=== PATIENT | female | born 1955 | race Caucasian/White ===

== ENCOUNTER 2019-11-06 11:40 | Emergency (ER) | payer OTHER, SELFPAY ==
[2019-11-06 11:48] VITALS: BP 149/80; PULSE 111; RESP 16; TEMP 37.4; O2SAT 98
--- NOTE | 2019-11-06 11:55 | ED.URI ---
HPI - URI/Sore Throat General Chief Complaint: Upper Respiratory Infection Stated Complaint: EARACHE/HEADACHE/SNEEZING/COUGH Time Seen by Provider: 11/06/19 12:10 Source: patient and RN notes reviewed Mode of arrival: ambulatory Limitations: no limitations History of Present Illness HPI Narrative: 64-year-old female presents with concern for a day history of sinus congestion, sinus pressure, facial pain, postnasal drainage, sneezing, rhinorrhea, cough, body aches. Reports taking several nytl-naa-ssezege medications with little relief. MD elicited complaint: cough Related Data Home Medications Medication Instructions Recorded Confirmed ranitidine HCl [Zantac 75] 11/06/19 Allergies Allergy/AdvReac Type Severity Reaction Status Date / Time ampicillin Allergy Unknown Unknown Verified 08/06/18 09:20 erythromycin base Allergy Unknown Unknown Verified 08/06/18 09:20 Penicillins Allergy Unknown Verified 02/01/18 14:19 tetracycline Allergy Unknown Unknown Verified 08/06/18 09:20 Review of Systems Review of Systems: Narrative: CONSTITUTIONAL: Reports malaise, chills. Denies sweats, or fever. EYES: Denies visual changes, redness, or discharge. ENT: Reports rhinorrhea, congestion, sinus pain, otalgia and sore throat. CARDIOVASCULAR: Denies chest pain, palpitations, or edema. RESPIRATORY: Reports cough, chest congestion. Denies dyspnea. GASTROINTESTINAL: Denies abdominal pain, nausea, vomiting, diarrhea SKIN: Denies rash or itching. MUSCULOSKELETAL: Reports myalgia. NEUROLOGIC: Reports headache. All systems reviewed & are unremarkable except as noted in HPI and below PMFSH Family History Family History (Updated 08/06/18 @ 09:24 by DOCTOR UNKNOWN) Father Diabetes mellitus Family history of coronary artery disease Other Family history of premature coronary heart disease Social History Social History Smoking status: Never smoker Alcohol intake: current Comments At time of signature, agree with nursing past medical, surgical, social and family history. There is no relevant family history pertinent to the presenting complaint Exam Narrative: Exam Narrative: GENERAL: Well-appearing, well-nourished, and in no acute distress. HEAD: Normocephalic EYES: PERRLA, conjunctivae clear ENT: Nares clear, turbinates edematous and erythematous, purulent discharge. Mucous membranes moist. TM pearly andrews with dull light reflex bilaterally; no tragal tenderness. Oropharynx erythematous without lesions. Tonsils not enlarged and without exudate, no drooling, no hoarseness, no trismus. NECK: Supple. No lymphadenopathy CHEST: Clear to auscultation, breath sounds equal. No wheezing, rhonchi, rales, or stridor. No respiratory distress, speaks in full sentences. Cough noted HEART: Regular rate and rhythm. No murmur heard. Normal peripheral pulses. SKIN: Warm, dry, no rash. NEURO: Alert and oriented x3. PSYCH: Normal mood and affect Course Course Emergency Course: Patient is aware of diagnosis, understands and agrees to treatment plan. Anticipatory guidance given. Patient agrees to follow-up as directed and is aware of reasons to seek care at the emergency department. Portions of this record may have been created with voice recognition software Vital Signs Vital signs: Vital Signs Temperature 99.4 F 11/06/19 11:48 Pulse Rate 111 H 11/06/19 11:48 Respiratory Rate 16 11/06/19 11:48 Blood Pressure 149/80 H 11/06/19 11:48 Pulse Oximetry 98 11/06/19 11:48 Temperature 99.4 F 11/06/19 11:48 Pulse Rate 111 H 11/06/19 11:48 Respiratory Rate 16 11/06/19 11:48 Blood Pressure 149/80 H 11/06/19 11:48 Pulse Oximetry 98 11/06/19 11:48 Reviewed. MDM - URI/Sore Throat MDM Narrative Medical decision making narrative: Differential diagnosis considered: Strep pharyngitis, allergic rhinitis, upper respiratory tract infection, sinusitis, rhinosinusitis, nasopharyngitis. viral pharyngitis, otitis media, otitis e
== END 2019-11-06 12:23 | disposition home or self-care (01) ==
PROVIDERS: Emergency Provider Nurse Practitioner
DX: J32.9 Chronic sinusitis, unspecified (principal); J40 Bronchitis, not specified as acute or chronic
CPT/HCPCS: 99213; G0463

== ENCOUNTER 2020-07-18 07:50 | Outpatient (CLI) | payer OTHER, SELFPAY ==
--- NOTE | ~2020-07-18 | MM_ITS ---
EXAMINATION: MM screening ari BI w melodie HISTORY: Screening TECHNIQUE: Craniocaudal and mediolateral oblique 3-D tomosynthesis images were obtained and synthetic 2-D images were generated. CAD analysis was submitted and interpreted. COMPARISON: Comparison to multiple prior studies sequentially, with oldest reviewed study dated 05/2015. BREAST PARENCHYMAL COMPOSITION: There are scattered areas of fibroglandular density. FINDINGS: There are developing asymmetries in the pain upper outer quadrant of the right breast. Ther e are developing calcifications in the left breast. IMPRESSION: 1. Developing right breast asymmetries and left breast calcifications. 2. Additional mammographic views and possible breast ultrasound are recommended. BI-RADS Category 0: Incomplete: Needs additional imaging evaluation. Reviewed, dictated and finalized at location A. ES 1 THRU 6 VISITING TEACHER IMPRESSION: 1. Developing right breast asymmetries and left breast calcifications. 2. Additional mammographic views and possible breast ultrasound are recommended . BI-RADS Category 0: Incomplete: Needs additional imaging evaluation.
== END 2020-07-18 07:51 | disposition home or self-care (01) ==
PROVIDERS: Visit Provider Nurse Practitioner
DX: Z12.31 Encounter for screening mammogram for malignant neoplasm of breast (principal); R92.8 Other abnormal and inconclusive findings on diagnostic imaging of breast
CPT/HCPCS: 77063; 77067

== ENCOUNTER 2020-07-18 08:26 | Outpatient (CLI) | payer OTHER, SELFPAY ==
[2020-07-18 10:34] LABS: Vitamin D 25 Hydroxy 56.1 ng/mL
[2020-07-18 11:04] LABS: Hepatitis C Virus Antibody Negative (Negative)
== END 2020-07-18 08:27 | disposition home or self-care (01) ==
PROVIDERS: Visit Provider Nurse Practitioner
DX: Z11.59 Encounter for screening for other viral diseases (principal); E55.9 Vitamin D deficiency, unspecified
CPT/HCPCS: 36415; 82306; 86803

== ENCOUNTER 2020-08-10 13:55 | Outpatient (CLI) | payer OTHER, SELFPAY ==
--- NOTE | ~2020-08-10 | MMUS_ITS ---
EXAMINATION: MM diagnostic ari BI w melodie, US breast BI complete HISTORY: Developing right breast asymmetries and left breast calcifications TECHNIQUE: Additional 3-D tomosynthesis images of both breasts were performed and synthetic 2-D image s were generated. Magnification views of left breast. CAD analysis was submitted and interpreted. Hig h resolution bilateral complete breast ultrasound was performed. COMPARISON: 07/18/2020 bilateral digital screening mammogram BREAST PARENCHYMAL COMPOSITION: The breasts are heterogeneously dense, which may obscure small masses . FINDINGS: MAMMOGRAPHIC FINDINGS: Approximately 1.5 cm circumscribed mass is noted in the outer mid right breast. There is an approximate 4 mm and 3 mm circumscribed opacities situated posteriorly in the central rig ht breast Sonographic correlation is recommended. There is an approximately 1.3 cm length of indeterminate pleomorphic microcalcifications, measuring u p to approximately 1.6 mm maximal width, in the upper inner quadrant of the left breast. Sonographic correlation is recommended. There is a circumscribed 4 mm opacity in the lower outer left breast. Additional masses of either breast be obscured by the heterogeneous dense stroma. There are multiple scattered benign calcifications otherwise in each breast. ULTRASOUND: There are multiple bilateral breast cysts, the largest on the right measuring 14.5 x 8 x 19 mm at 10: 00 3 cm from the nipple. There is a circumscribed hypoechoic lesion with through transmission and no internal vascularity at 1 0:00 3 cm from the nipple as well, most likely benign. The largest cyst on the left situated at 3:00 and measures 11 x 7 x 8.4 mm, with through transmission posterior enhancement, no internal vascularity, with through transmission, compatible with simple cy st. No suspicious solid lesion or suspicious shadowing of either breast is evident. IMPRESSION: 1. Suspicious linear array of microcalcifications approximately 13 x 1.6 mm dimension in the upper in ner quadrant of the left breast; consider stereotactic biopsy 2. Multiple bilateral masses with benign mammographic and sonographic features, mostly simple cysts Recommendation: Stereotactic biopsy of left upper inner quadrant microcalcifications Reviewed, dictated and finalized at location A. GER PORTABLE IMPRESSION: 1. Suspicious linear array of microcalcifications approximately 13 x 1.6 mm dim ension in the upper inner quadrant of the left breast; consider stereotactic bi opsy 2. Multiple bilateral masses with benign mammographic and sonographic features, mostly simple cysts Recommendation: Stereotactic biopsy of left upper inner quadrant microcalcifica tions
== END 2020-08-10 13:56 | disposition home or self-care (01) ==
PROVIDERS: Visit Provider Obstetrics & Gynecology Gynecology
DX: R92.8 Other abnormal and inconclusive findings on diagnostic imaging of breast (principal)
CPT/HCPCS: 76641; 77062; 77066; G0279

== ENCOUNTER 2020-08-22 10:48 | Outpatient (CLI) | payer OTHER, SELFPAY ==
--- NOTE | ~2020-08-22 | DEXA_ITS ---
Bone Density Report Name: Luna Freeman Age: 64 Sex: Female Ethnicity: White Date of : 1955 Indication: postmenopausal; prior fracture; Referring Provider: Carin, Genia Study: Bone densitometry was performed. Exam Date: August 22, 2020 Accession number: [id number] Bone Density: Region BMD T-score Z-score Classification AP Spine (L1-L4) 0.984 -0.6 1.0 Normal Femoral Neck (Left) 0.845 0.0 1.4 Normal Total Hip (Left) 1.079 1.1 2.2 Normal Total Hip Bilateral Avg 1.036 0.8 1.9 Normal Femoral Neck (Right) 0.816 -0.3 1.1 Normal Total Hip (Right) 0.993 0.4 1.5 Normal World Health Organization criteria for BMD impression classify patients as: Normal (T-score at or above -1.0), Osteopenia (T-score between -1.0 and -2.5), or Osteoporosis (T-score at or below -2.5). 10-year Fracture Risk: FRAX not reported because: All T-scores for Spine Total, Hip Total, Femoral Neck at or above -1.0 Previous Exams: Region Exam Age BMD T-score BMD Change BMD Change Date g/cm2 vs Baseline vs Previous Total Hip(Left) 08/22/2020 64 1.079 1.1 0.076(7.5%)* 0.076(7.5%)* 06/17/2017 61 1.003 0.5 Total Hip(Right) 08/22/2020 64 0.993 0.4 0.032(3.4%)* 0.032(3.4%)* 06/17/2017 61 0.961 0.2 *Denotes significance at 95% confidence level, LSC for Total Hip = 0.027 g/cm2 Clinical Information Provided by Patient: Has had a low trauma fracture Has used the following medications: Vitamin D, Calcium Patient maximum height was 64 Menopause Age: 52 No regular weight bearing exercise Drinks caffeinated beverages Onset of menses at age 12 Number of children 1 Impression: The patient has normal bone mass. The patient has risk factors, including: previous fracture. No significant bone loss was observed. Discussion: BONE DENSITY IS ABOVE THE MINIMUM DESIRABLE LEVEL AT ALL SKELETAL SITES TESTED. This patient?s bone mineral density is above the minimum desirable level (T-score -1.0 or better) at all sites measured. The patient should follow a healthful lifestyle (good nutrition with adequate calcium and vitamin D, and appropriate weight-bearing exercise). Follow-Up: Consider repeating this study in 5 years or sooner if there is some new clinical indication. Reported by: TONI on 08/22/2020 11:21:00 AM. Reviewed, dictated and finalized at location [facility]
== END 2020-08-22 10:49 | disposition home or self-care (01) ==
PROVIDERS: Visit Provider Nurse Practitioner
DX: Z13.820 Encounter for screening for osteoporosis (principal); Z78.0 Asymptomatic menopausal state
CPT/HCPCS: 77080

== ENCOUNTER → 2021-09-24 15:23 | Outpatient (CLI) | payer OTHER, SELFPAY ==
--- NOTE | ~2021-09-24 | US_ITS ---
EXAMINATION: US pelvic complete w TV EXAM DATE: 09/24/2021 16:01 INDICATION: Pelvic pain. TECHNIQUE: Pelvic transabdominal and transvaginal sonogram was performed. There are multiple graysca le and Doppler images available for interpretation. There is no prior study for comparison. FINDINGS: Uterus measures 8.4 x 4.9 x 5.1 cm, with region of loculated endometrial fluid which inclu ding the endometrial stripe measures 1.6 cm, which is considered abnormally thickened for postmenopau felisha status. 2 focal regions along the myometrium were measured, possible fibroids measuring about 1.5 cm each. There is no free pelvic fluid. Right adnexa: The ovary is not identified. There is no adnexal mass. Left adnexa: The ovary is not identified. There is no adnexal mass. IMPRESSION: 1. Fluid in the endometrium with thickened measurement of 1.6 cm. Differential diagnosis includes h yperplasia and carcinoma. 2. Possible small fibroids. Reviewed, dictated and finalized at location G. SCAPE ARCHITECTURE TEACHER IMPRESSION: 1. Fluid in the endometrium with thickened measurement of 1.6 cm. Differentia l diagnosis includes hyperplasia and carcinoma. 2. Possible small fibroids.
== END ==
PROVIDERS: Visit Provider Nurse Practitioner
DX: R10.2 Pelvic and perineal pain (principal)
CPT/HCPCS: 76830; 76856

== ENCOUNTER 2021-10-25 00:30 | Day surgery (SDC) | payer OTHER, SELFPAY ==
[2021-10-18 10:36] VITALS: BMI 37.8
--- NOTE | 2021-10-18 10:47 | PC.NURSE ---
Report to the Outpatient Waiting Room, entrance under the green pavilion located off [facility], at time 0815 on date 10/25/21. OR Time: 1015. - You will be asked a series of questions to screen for COVID 19 for your protection. - A mask is required within the hospital. - No visitors are allowed at this time. Preoperative COVID Testing Requirements: No COVID Test needed if: (proof is required; if not received patient will have Rapid Test prior to entry) - Patient has received COVID Vaccine at least 14 days prior to procedure date or - Patient has positive COVID test result within last 90 days of surgery date. COVID Test needed if above criteria is not met Patients may have clear liquids (water, carbonated beverages, clear teas, apple juice) until 3 hours prior to surgery with a maximum of 20 ounces. - No food from midnight until time of surgery Take the following medications with a SIP of water the morning of surgery: NONE Medications to discontinue per physician: VITAMINS/SUPPLEMENTS Date to take last dose: 10/21/21 Please no make-up, nail pakistani, hairspray, perfume, deodorant, or body powder the day of surgery. No jewelry (including any body piercings) or valuables the day of surgery, leave them at home. Please take a shower or bath the night before, or the morning of, surgery with an antibacterial soap. Wear comfortable, loose fitting clothing. - Jewelry must be removed prior to entering the operating room. Rings and piercings that are not removed may be cut off. - The hospital will not accept responsibility for valuables. - Please leave all valuables, including medications, at home the day of surgery. If you are going home after surgery, a licensed roll off driver must drive you home. - NO public transportation without another adult. - We recommend that an adult stay with you for 24 hours following discharge. - We also recommend that you do not drive, make important decision, drink alcoholic beverages, or take any drugs that were not prescribed by your health care provider for at least 24 hours after your discharge time. Follow any additional instructions given to you from your surgeon. Telephone instructions given to FROILAN FRIAS and asked if any additional questions and then verbalized understanding. Patient advised to call surgeon office or pre surgery nurse liaison [phone] if any additional questions.
--- NOTE | 2021-10-25 07:38 | WPDHPUPDATE1 ---
History and Physical Update Update Date/Time: 10/25/21 07:38 History and Physical has been reviewed, including an updated exam of the patient. There are NO changes in the patient's condition. Risks, benefits, and alternatives have been discussed and questions answered. Patient agrees to proceed with procedure.
--- NOTE | 2021-10-25 07:39 | PM.HPGS ---
History of Present Illness History of Present Illness Consent: Risks, benefits, and alternatives have been discussed and questions answered. Patient agrees to proceed with procedure. Chief complaint: thickened endomtrial lining Narrative: Luna Freeman is a 66 year old female with complaint originally of lower pelvic pressure and pain. The patient denies vaginal bleeding. Patient underwent pelvic ultrasound early September which revealed a normal uterine size and bilateral adnexa however revealed an area of loculated endometrial fluid including the endometrial stripe measuring 1.6cm. In addition there were 2 small fibroids measuring 1.5cm each. Was recommended to proceed with D&C hysteroscopy. Risks of infection, bleeding, perforation, and possible pathology were reviewed. Patient voices understanding and agrees to proceed. Review of Systems Review of Systems: not repeated day of surgery; patient states no changes in status Musculoskeletal: Musculoskeletal: Reports arthralgias PMFSH Past Medical History Medical History (Updated 10/25/21 @ 07:53 by Krystin Clement MD) (normal spontaneous vaginal delivery) Surgical History Surgical History (Updated 10/25/21 @ 07:52 by Krystin Clement MD) H/O left breast biopsy Fibroadenoma September 2020 Status post discectomy for herniated nucleus pulposus 1998 Status post tonsillectomy Status post tubal ligation Family History Family History (Updated 08/06/18 @ 09:24 by DOCTOR UNKNOWN) Father Diabetes mellitus Family history of coronary artery disease Other Family history of premature coronary heart disease Social History Social History Smoking status: Never smoker Alcohol intake: current Alcohol use details: RARE Substance use: never Substance use type: does not use Living arrangements: with family Spiritual care concerns: No Meds Home Medications and Allergies Home Medications Medication Instructions Recorded Confirmed Type cetirizine [Zyrtec] 10 mg PO DAILY 10/18/21 10/18/21 History cholecalciferol (vitamin D3) 125 mcg PO DAILY 10/18/21 10/18/21 History [Vitamin D3] ibuprofen [Motrin] 200 mg PO HS 10/18/21 10/18/21 History bumtyjvv-ggi-arul-FA-lutein 1 tablet PO DAILY 10/18/21 10/18/21 History [Centrum Silver Women] vitamin B complex [B 1 tablet PO DAILY 10/18/21 10/18/21 History Complex-Vitamin B12] Allergies Allergy/AdvReac Type Severity Reaction Status Date / Time ampicillin Allergy Unknown Rash Verified 10/18/21 10:32 erythromycin base Allergy Unknown Hives Verified 10/18/21 10:32 Penicillins Allergy Unknown Rash Verified 10/18/21 10:32 tetracycline Allergy Unknown Rash Verified 10/18/21 10:32 meloxicam [From Mobic] AdvReac Anxiety Verified 10/18/21 10:32 Exam Const: General: healthy appearing and alert Orientation/consciousness: patient oriented x3 GI: GI Palp: Yes Soft to palpation, No Tenderness to palpation present (GI) and No Palpable mass present : External Female Exam: normal external appearance Speculum Exam - Vagina: normal appearance of the vagina and normal vaginal discharge Speculum Exam - Cervix: normal appearance of the cervix Bimanual exam- vagina & uterus: uterine size normal and consistency normal Bimanual Exam- Adnexa, other: normal adnexae and No adnexal tenderness Neuro: General: patient oriented x3 Assessment and Plan Assessment and plan (1) Thickened endometrium: Code(s): R93.89 - Abnormal findings on diagnostic imaging of other specified body structures Status: Acute Assessment and Plan: Plan is to proceed with D&C hysteroscopy
[2021-10-25] MEDS: ACETAMINOPHEN 500 MG TABLET 1000 MG PO (08:24)
[2021-10-25] MEDS: LACTATED RINGERS 1,000 ML 30 ML IV CONT (08:35)
[2021-10-25 08:43] VITALS: BP 126/90; PULSE 81; RESP 16; TEMP 36.4; O2SAT 98
--- NOTE | 2021-10-25 08:50 | WPDANESEPPF ---
Anes - Initial Pre Proc Eval Procedure: Operation Date: 10/25/21 10:15 Proposed Procedures p Hysteroscopy, Dilation and Curettage - Krystin Clement MD Date/Time: 10/25/21 08:50 Surgeon: Krystin Clement MD Pre Op Diagnosis: thickened endomtrial lining Patient Data Age: 66 Gender: F Height: 1.63 m Weight: 100.6 kg Last Vital Signs Temp 36.4 C L 10/25/21 08:43 Pulse 81 10/25/21 08:43 Resp 16 10/25/21 08:43 BP 126/90 10/25/21 08:43 Pulse Ox 98 10/25/21 08:43 Allergies Allergy/AdvReac Type Severity Reaction Status Date / Time erythromycin base Allergy Severe Hives Verified 10/25/21 08:20 ampicillin Allergy Mild Rash Verified 10/25/21 08:20 Penicillins Allergy Mild Rash Verified 10/25/21 08:20 tetracycline Allergy Mild Rash Verified 10/25/21 08:20 meloxicam [From Mobic] AdvReac Intermediate Anxiety Verified 10/25/21 08:20 Home Medications Medication Instructions Recorded Confirmed Type cetirizine [Zyrtec] 10 mg PO DAILY 10/18/21 10/25/21 History cholecalciferol (vitamin D3) 125 mcg PO DAILY 10/18/21 10/25/21 History [Vitamin D3] ibuprofen [Motrin] 200 mg PO HS 10/18/21 10/25/21 History hbutjjvo-tmw-lecu-FA-lutein 1 tablet PO DAILY 10/18/21 10/25/21 History [Centrum Silver Women] vitamin B complex [B 1 tablet PO DAILY 10/18/21 10/25/21 History Complex-Vitamin B12] Patient hx anesthesia problems: none Family hx anesthesia problems: none Results Review: All pre-operative results and documents have been reviewed as part of the pre-operative evaluation. [facility] Past Medical History Medical History (normal spontaneous vaginal delivery) GENNY (obstructive sleep apnea) Surgical History Surgical History H/O left breast biopsy Fibroadenoma September 2020 Status post discectomy for herniated nucleus pulposus 1999 Status post tonsillectomy Status post tubal ligation Family History Family History Father Diabetes mellitus Family history of coronary artery disease Other Family history of premature coronary heart disease Social History Social History Smoking status: Never smoker Alcohol intake: current Alcohol use details: RARE Substance use: never Substance use type: does not use Living arrangements: with family Spiritual care concerns: No Anes - Eval Final PreProcedure Day of Procedure 10/25/21 08:50 Patient weight: obese Heart: regular rate and rhythm Lungs: clear to auscultation Airway: Mallampati scale class III Neurological: alert and oriented Last oral intake: >/= 8 hours ASA classification: II Emergent: no Anesthetic plan: proceed Anesthesia type and monitoring: general GIVS and standard monitoring Results Review: All pre-operative results and documents have been reviewed as part of the pre-operative evaluation. Informed Consent: The patient's anesthetic plan and its attendant risks and benefits were discussed with the patient/family/POA. Questions were solicited and answers provided to the satisfaction of the patient/family/POA.
[2021-10-25] MEDS: KETOROLAC 30 MG/ML VIAL (*BKC) IV PUSH (10:05)
--- NOTE | 2021-10-25 10:06 | W.PM.PROC2 ---
Procedure Note - Detailed Date of Procedure 10/25/21 Pre-op Diagnosis thickened endomtrial lining Post-op Diagnosis same Procedure Performed D&C hysteroscopy with MyoSure resection of large polyp Surgeon Krystin Clement MD Anesthesia MAC and local Findings Uterus sounds to 9cm. There was a very large posterior polyp. The remainder of the endometrium appears grossly atrophic. Description of Procedure The patient was taken to the operating room and placed under anesthesia in the dorsal lithotomy position. She was prepped and draped in the usual sterile fashion. [place] speculum was placed in the vagina and the cervix was grasped on the anterior lip with a tenaculum. The cervix is serially injected with 1% lidocaine. The uterus is sounded to 9cm. The cervix is serially dilated with Hegar to an 8. The diagnostic hysteroscope was placed with the stated findings. The hysteroscope was removed and the MyoSure device is placed. Under direct visualization the large polyp was removed in its entirety. The hysteroscope was removed and the medium sharp curette used to sharply curette the endometrium until a good uterine cry was noted in all areas. Minimal materials obtained. All instruments are removed. The patient is awakened from anesthesia and taken to recovery in stable condition. Sponge, needle, and instrument counts are correct per the OR staff. Estimated Blood Loss 5 Drains No Packing No Pathology yes (Endometrial shavings and curettings) Complications No immediate complications Condition stable Disposition PACU
[2021-10-25 10:11] VITALS: BP 101/64; PULSE 70; RESP 16; O2SAT 92
[2021-10-25 10:40] VITALS: BP 99/65; PULSE 64; RESP 16; O2SAT 97
[2021-10-25 11:05] VITALS: BP 118/69; PULSE 64; RESP 16; O2SAT 96
--- NOTE | 2021-10-25 11:08 | SUR.PHASEII ---
PATIENT WAITING FOR HER RIDE.
== END 2021-10-25 11:33 | disposition home or self-care (01) ==
PROVIDERS: PCP Internal Medicine; Visit Provider Obstetrics & Gynecology Gynecology
PROC: 0U5B8ZZ Destruction of Endometrium, Via Natural or Artificial Opening Endoscopic (ICD-10-PCS; CPT 58563; principal; 2021-10-25 10:15)
DX: N84.0 Polyp of corpus uteri (principal); G47.33 Obstructive sleep apnea (adult) (pediatric); E66.9 Obesity, unspecified; Z68.38 Body mass index [BMI] 38.0-38.9, adult
CPT/HCPCS: 58558; 88305; A9270; J1100; J1885; J2250; J2405; J2704; J3010; J7030; J7120